=== PATIENT | female | born 1965 | race Two or more races ===

== ENCOUNTER 2016-11-07 | Emergency (ER) | payer OTHER ==
[~2016-11-07] VITALS: Ht 157.5 cm; Wt 80.3 kg
[2016-11-07 01:50] VITALS: BP 122/86
== END 2016-11-07 02:49 | disposition home or self-care (01) ==
LOC: ER 00:05
DX: S46.912A Strain of unspecified muscle, fascia and tendon at shoulder and upper arm level, left arm, initial encounter (principal); X58.XXXA Exposure to other specified factors, initial encounter; Y93.89 Activity, other specified; Y99.8 Other external cause status; Y92.89 Other specified places as the place of occurrence of the external cause
CPT/HCPCS: 73030

== ENCOUNTER 2018-03-29 23:51 | Emergency (ER) | payer OTHER ==
[~2018-03-29] VITALS: Ht 157.5 cm; Wt 79.8 kg
[2018-03-30 04:03] VITALS: BP 127/73
[2018-03-30] MEDS ORDERED: ACETAMINOPHEN 500 MG TAB PO ONE (04:15)
[2018-03-30] MEDS ORDERED: IBUPROFEN 800 MG TAB PO ONE (04:15)
== END 2018-03-30 05:13 | disposition home or self-care (01) ==
LOC: ER 23:51
DX: S40.021A Contusion of right upper arm, initial encounter (principal); J45.909 Unspecified asthma, uncomplicated; W22.8XXA Striking against or struck by other objects, initial encounter; Y93.89 Activity, other specified; Y99.0 Civilian activity done for income or pay; Y92.69 Other specified industrial and construction area as the place of occurrence of the external cause
CPT/HCPCS: 73060

== ENCOUNTER 2018-07-23 11:31 | Emergency (ER) | payer OTHER ==
[~2018-07-23] VITALS: Ht 157.5 cm; Wt 83.0 kg
[2018-07-23 11:49] VITALS: BP 114/69
[2018-07-23] MEDS ORDERED: KETOROLAC TROMETH 60MG/2ML VIAL IM ONE (13:00)
== END 2018-07-23 14:00 | disposition home or self-care (01) ==
LOC: ER 11:34
DX: M54.12 Radiculopathy, cervical region (principal); M54.16 Radiculopathy, lumbar region; M51.37 Other intervertebral disc degeneration, lumbosacral region; J45.909 Unspecified asthma, uncomplicated; R51 Headache; X50.1XXA Overexertion from prolonged static or awkward postures, initial encounter; Y93.89 Activity, other specified; Y92.89 Other specified places as the place of occurrence of the external cause; Y99.8 Other external cause status
CPT/HCPCS: 72040; 72100; 96372; 99283; J1885